=== PATIENT | male | born 1985 | race Two or more races ===

== ENCOUNTER 2023-09-05 09:41 | Emergency (ER) | payer OTHER ==
[2023-09-05] MEDS ORDERED: DEXAMETHASONE SOD PHOSPHATE 10 MG/1 ML VIAL PO ONE (10:19)
[2023-09-05] MEDS ORDERED: IBUPROFEN 600 MG TABLET (FP) PO ONE ×2 (10:20→10:23)
[2023-09-05 10:22] VITALS: BP 148/92; PULSE 107; RESP 18; TEMP 98.2; BMI 29.0
[2023-09-05] MEDS ORDERED: DEXAMETHASONE SOD PHOSPHATE 10 MG/1 ML VIAL ONE (10:23)
[2023-09-05 10:48] LABS: THROAT:GRP A STREP NOT DETECTED (NOTDETECTED)
== END 2023-09-05 10:59 | disposition home or self-care (01) ==
LOC: EDBD 09:41 → JERFT 09:41
DX: R05.9 Cough, unspecified (principal); R09.81 Nasal congestion; R50.9 Fever, unspecified; R51.9 Headache, unspecified; J00 Acute nasopharyngitis [common cold]; K12.2 Cellulitis and abscess of mouth; Z20.822 Contact with and (suspected) exposure to COVID-19
CPT/HCPCS: 0241U-QW; 87651; 99283-25; J1100

== ENCOUNTER 2024-04-01 14:28 | Emergency (ER) | payer OTHER ==
[2024-04-01 14:35] VITALS: TEMP 97.7; BMI 28.2
[2024-04-01] MEDS ORDERED: LORazepam 1 MG TABLET ONE (15:11)
[2024-04-01 15:19] VITALS: BP 128/90; PULSE 78; RESP 16
[2024-04-01] MEDS: LORazepam 1 MG TABLET PO ONE (15:19)
[2024-04-01] MEDS: IBUPROFEN 200 MG TABLET PO ONE (16:09)
[2024-04-01] MEDS ORDERED: IBUPROFEN 600 MG TABLET (FP) PO ONE (16:10)
[2024-04-01] MEDS: IBUPROFEN 600 MG TABLET (FP) PO ONE (16:15)
== END 2024-04-01 16:56 | disposition home or self-care (01) ==
LOC: JER 14:28
DX: U07.0 Vaping-related disorder (principal); F41.9 Anxiety disorder, unspecified; F17.200 Nicotine dependence, unspecified, uncomplicated; R51.9 Headache, unspecified; R09.81 Nasal congestion; M79.10 Myalgia, unspecified site; R50.9 Fever, unspecified; R05.9 Cough, unspecified
CPT/HCPCS: 82962; 93005; 93010; 99284-25